=== PATIENT | male | born 1970 | race Two or more races ===

== ENCOUNTER 2025-02-12 11:53 | Emergency (ER) | payer MEDICAID, OTHER ==
[~2025-02-12] VITALS: Ht 162.6 cm; Wt 90.0 kg
[2025-02-12 11:54] VITALS: BP 124/87; PULSE 99; RESP 16; TEMP 97.4; O2SAT 65
--- NOTE | 2025-02-12 13:46 | ED.PDOC ---
History of Present Illness HPI Comments 54-year-old male came to the ER after a fall. He was waiting for his in this hospital for her normal doctor's visit. He is going to the bathroom when he slipped and fell landing on his head and buttocks. He is complaining of right-sided pelvic pain along with pain in the back of the head. He does have a history of stroke which affected his right upper lower extremity hypertension diabetes. Denies loss of consciousness. Denies any other symptoms. Chief Complaint: Fall Injury Time Seen by MD: 12:46 Reviewed Notes: Nurses Notes, Medications, Allergies Allergies: Coded Allergies: NO KNOWN ALLERGIES (Unverified , 02/12/25) Home Meds Reported Medications Levetiracetam (Keppra) 500 Mg Tab, 500 MG PO BID, TAB 02/12/25 Tamsulosin Hcl (Tamsulosin Hcl) 0.4 Mg Cap, 0.4 MG PO DAILY, CAP 02/12/25 Amlodipine Besylate (Amlodipine Besylate) 5 Mg Tab, 5 MG PO DAILY, TAB 02/12/25 Metformin Hydrochloride (METFORMIN HCL ER) 500 Mg Tab, 500 MG PO BID, TAB 02/12/25 Atorvastatin Calcium (Lipitor) 20 Mg Tab, 20 MG PO DAILY, TAB 02/12/25 Losartan Potassium (Losartan Potassium) 25 Mg Tab, 25 MG PO DAILY, TAB 02/12/25 Aspirin (Aspirin Low Dose) 81 Mg Chw, 81 MG PO DAILY, TAB.CHEW 02/12/25 Information Source: Patient Mode of Arrival: Wheelchair Severity: Moderate Timing: Hours Duration: Since onset Past Medical History PAST MEDICAL HISTORY: CVA, DM, HTN Surgical History: Denies all surgeries Social History Smoker: Non-Smoker Alcohol: Denies ETOH Use Drugs: Denies Drug Use Constitutional: denies: chills, diaphoresis, fatigue, fever, malaise, sweats, weakness, others EENTM: denies: blurred vision, double vision, ear bleeding, ear discharge, ear drainage, ear pain, ear ringing, eye pain, eye redness, hearing loss, mouth pain, mouth swelling, nasal discharge, nose bleeding, nose congestion, nose pain, photophobia, tearing, throat pain, throat swelling, voice changes, others Respiratory: denies: cough, hemoptysis, orthopnea, SOB at rest, shortness of breath, SOB with excertion, stridor, wheezing, others Cardiovascular: denies: chest pain, dizzy spells, diaphoresis, Dyspnea on exertion, edema, irregular heart beat, left arm pain, lightheadedness, pal pitations, PND, syncope, others Gastrointestinal: denies: abdomen distended, abdominal pain, blood streaked bowels, constipated, diarrhea, dysphagia, difficulty swallowing, hematemesis, melena, nausea, poor appetite, poor fluid intake, rectal bleeding, rectal pain, vomiting, others Genitourinary: denies: burning, dysuria, flank pain, frequency, hematuria, incontinence, penile discharge, penile sore, pain, testicle pain, testicle swelling, urgency, others Neurological: denies: dizziness, fainting, headache, left sided numbness, left sided weakness, numbness, paresthesia, pre-existing deficit, right sided numbness, right sided weakness, seizure, speech problems, tingling, tremors, weakness, others Musculoskeletal: reports: joint pain (Pelvis); denies: back pain, gout, joint swelling, muscle pain, muscle stiffness, neck pain, others Integumetry: denies: bruises, change in color, change in hair/nails, dryness, laceration, lesions, lumps, rash, wounds, others Allergic/Immunocompromised: denies: Difficulty Healing, Frequent Infections, Hives, Itching, others Hematologic/Lymphatic: denies: anemia, blood clots, easy bleeding, easy bruising, swollen glands, others Endocrine: denies: excessive hunger, excessive sweating, excessive thirst, excessive urination, flushing, intolerance to cold, intolerance to heat, unexplained weight gain, unexplained weight loss, others Physical Exam General Appearance: Moderate Distress HEENT: Normal ENT Inspection, Pharynx Normal, TMs Normal Neck: Full Range of Motion, Non-Tender, Normal, Normal Inspection Respiratory: Chest Non-Tender, Lungs Clear, No Accessory Muscle Use, No Respiratory Distress, Normal Breath Sounds Cardiovascular: No Edema, No JVD, No Murmur, No Gallop, Normal Peripheral Pulses, Regular Rate/Rhythm Breast Exam: Deferred Gastrointestinal: No Organomegaly, Non Tender, No Pulsatile Mass, Normal Bowel Sounds, Soft Genitalia: Deferred Pelvic: Deferred Rectal: Deferred Extremities: Decreased range of motion (Right upper lower extremity) Musculoskeletal : Apperance: Normal Neurologic: Alert Cerebellar Function: NOT DONE Reflexes: NOT DONE Skin: Normal Color Peripheral Pulses: 3+ Radial (R), 3+ Radial (L) Lymphatic: No Adenopathy Was a procedure done? Was a procedure done?: No Differential Dx Considerations may include: Head injury Electrolyte imbalance X-Ray, Labs, Meds, VS Vital Signs Date Time Temp Pulse Resp B/P (MAP) Pulse Ox O2 Delivery O2 Flow Rate FiO2 02/12/25 11:54 97.4 99 16 124/87 65 97.4 Patient alert. Status post fall. Vitals stable. Answering all questions. History of stroke. No obvious injury. He is on blood thinner. Explained to the family. Continue monitoring. Time of 1ST Reevaluation: 13:43 Reevaluation 1ST: Unchanged Patient Education/Counseling: Diagnosis, Treatment, Prognosis, Need For Follow Up Family Education/Counseling: No Family Present SEPSIS Sepsis Screen Date sepsis recognized/suspect: Feb 12, 2025 Time Sepsis recognized/suspect: 1157 Recent Procedure: No On Antibiotic Therapy: No Respiratory Rate >20: No Heart Rate >90: No Temp<36 C (96.8 F) or >38.3 C: No SBP <90 or MAP <65 mmHG: No New Acute Mental Status Change: No Is the patient on CPAP, BIPAP,: No Vital Signs Date Time Temp Pulse Resp B/P (MAP) Pulse Ox O2 Delivery O2 Flow Rate FiO2 02/12/25 11:54 97.4 99 16 124/87 65 97.4 Departure 1 Departure Time of Disposition: 13:45 Impression: Primary Impression: Head injury Qualified Codes: S09.90XA - Unspecified injury of head, initial encounter Disposition: ADMITTED INPATIENT Admit to: Med Surg Condition: Guarded Critical Care Note Critical Care Time?: No Stability Stability form required: No Heart Score Heart Score: Heart Score Response (Comments) Value History N/A 0 EKG N/A 0 Age N/A 0 Risk Factors N/A 0 Troponin N/A 0 Total 0 REAL NIETO MD Feb 12, 2025 13:46
[2025-02-12] MEDS ORDERED: AMLO1TAB22 PO (14:44)
[2025-02-12] MEDS ORDERED: ATOR20TA PO (14:44)
[2025-02-12] MEDS ORDERED: LOSA-533 PO (14:44)
[2025-02-12] MEDS ORDERED: ASPI81CH59 PO (14:44)
[2025-02-12] MEDS ORDERED: LEVE500T40 PO (14:44)
[2025-02-12] MEDS ORDERED: TAMS0.4C39 PO (14:44)
[2025-02-12] MEDS ORDERED: METF-489 PO (14:44)
== END 2025-02-12 17:17 | disposition left against medical advice (07) ==
LOC: ER 11:53
DX: S09.8XXA Other specified injuries of head, initial encounter (principal); I10 Essential (primary) hypertension; E11.9 Type 2 diabetes mellitus without complications; Z86.73 Personal history of transient ischemic attack (TIA), and cerebral infarction without residual deficits; Z79.899 Other long term (current) drug therapy; Z79.84 Long term (current) use of oral hypoglycemic drugs; Z79.82 Long term (current) use of aspirin; W01.0XXA Fall on same level from slipping, tripping and stumbling without subsequent striking against object, initial encounter; Y93.89 Activity, other specified; Y92.89 Other specified places as the place of occurrence of the external cause; Y99.8 Other external cause status

== ENCOUNTER → 2025-02-15 | Day surgery (SDC) | payer OTHER ==
[~2025-02-15] VITALS: Ht 167.6 cm; Wt 70.8 kg
[~2025-02-15] MED LIST: AMLO1TAB22 PO; ASPI81CH59 PO; ATOR20TA PO; LEVE500T40 PO; LOSA-533 PO; METF-489 PO; MIDAZOLAM HCL 2MG/2ML 2ml VIAL (1mg/ml) ONE; PROPOFOL 10 MG/ML 20 ML IV ONE; TAMS0.4C39 PO; fentaNYL CITRATE 100 MCG/2 ML VL ONE
--- NOTE | 2025-02-15 12:22 | DVHHP2 ---
GI H&P Pre-Op Assessment Date: 02/15/25 Chief complaint: Blood in stool and anal discomfort HPI: per clinic note Past medical history: per clinic note Past surgical history: per clinic note Family history: per clinic note Physical exam: General: NAD, AAOX3 HEENT: PERRL, no scleral icterus, normal hearing, gums without lesions or bleeding, oropharynx clear without erythema or exudate. Neck: Supple without enlargement of the thyroid, or lymphadenopathy. Chest: Normal size and shape, no tenderness, lung marrufo clear to auscultation and percussion, nonlabored breathing. Heart: RRR, no murmur Abdomen: non-distended, no tenderness to palpation, +BS, no hepatosplenomegaly Extremities: no edema Neurological: CN II-XII intact, sensation intact in all extremities, 5+ strength in all extremities Skin: No rashes, No jaundice Assessment: - Blood in stool and anal discomfort Plan: - Colonoscopy - Risks (bleeding, infection, perforation, reaction to sedation medications and cardiopulmonary arrest) and benefit of the procedure were explained to patient. Patient agrees to undergo the procedure. HILLARY NUNN MD Feb 15, 2025 12:22
--- NOTE | 2025-02-15 12:24 | DVHOP2 ---
Operative Report DATE OF OPERATION: 02/15/25 PROCEDURE: Colonoscopy. PREOPERATIVE INDICATION: The patient is a 54 -year-old male undergoing colonoscopy for blood in the stool and anal discomfort. POSTOPERATIVE DIAGNOSES: 1. 3 mm ascending colon polyp was removed with cold snare and retrieved. The polypectomy site was cauterized with the snare because there was some bleeding. 2. The rectum and the anus were normal in appearance. PROCEDURE PERFORMED BY: Stewart Montalvo M.D. SCOPE: Olympus videocolonoscope. ASA CLASS:3 PREOPERATIVE MEDICATIONS: MAC with Dr Jaquez PROCEDURE IN DETAIL: After obtaining an informed consent, the patient was placed on left lateral decubitus position. He was then sedated with the above medications. A rectal examination was performed that was normal. The colonoscope was then passed through the anus into the rectosigmoid and through the descending, transverse, and ascending colon up to the cecum with visual ization of the appendiceal orifice, base of the cecum and the ileocecal valve. A 3 mm ascending colon polyp was removed cold snared and retrieved. There was some bleeding at the polypectomy sites so it was cauterized. The rectum and anus were normal in appearance. The colonoscope was then withdrawn. The patient tolerated the procedure well without difficulty. WITHDRAWAL TIME: 12 minutes QUALITY OF THE PREP: Philo Bowel Prep score: 6 COMPLICATIONS : None SPECIMENS: Colon polyp DISPOSITION: D/C to home PLAN: 1. Repeat colonoscopy base on biopsy result STEWART MONTALVO MD Feb 15, 2025 12:24
[2025-02-15 12:25] VITALS: O2SAT 100
--- NOTE | 2025-02-15 12:25 | DVHDS2 ---
Physician Discharge Progress N Final Diagnosis: Colon polyp Operations or Procedures: Operations or Procedures Colonoscopy with cold snare polypectomy Condition on Discharge: Good Disposition: Home Discharge Instructions: Diet: Regular Activity: No Restrictions, As Tolerated Medications: Resume previous home medications Follow Up Care: Discharge Statement: "Patient was advised to return to the ER or call 911 if any headaches, dizziness, shortness of breath, chest pain, abdominal pain, bleeding, fevers, or worsening of medical condition. Patient was counseled about treatment plan, medications, possible side effects, patientverbalized understanding. All questions were answered to the best of my ability. This discharge took greater then 30 minutes in planning, reviewing documentation, counseling the patient, and discussing with other team members." HILLARY NUNN MD Feb 15, 2025 12:25
[2025-02-15 12:55] VITALS: BP 135/86; PULSE 57; RESP 14; O2SAT 97
== END | disposition home or self-care (01) ==
LOC: GI 09:40
PROVIDERS: ATTEND Internal Medicine Gastroenterology
DX: K92.1 Melena (principal); K62.89 Other specified diseases of anus and rectum; K51.40 Inflammatory polyps of colon without complications; I10 Essential (primary) hypertension; E11.9 Type 2 diabetes mellitus without complications; G40.909 Epilepsy, unspecified, not intractable, without status epilepticus; Z86.73 Personal history of transient ischemic attack (TIA), and cerebral infarction without residual deficits
CPT/HCPCS: 45385; 82962; 88305; J1100; J2250; J2704; J3010; J7030